=== PATIENT | female | born 1950 | race Caucasian/White ===

== ENCOUNTER 2019-11-12 11:17 | Outpatient (CLI) | payer MEDICARE, SELFPAY ==
--- NOTE | ~2019-11-12 | PE_ITS ---
EXAMINATION: PET skull to mid thigh DATE: 11/12/2019 14:06 INDICATION: Lung nodule. TECHNIQUE: Blood glucose level was 95 mg/dL. 6.209 mCi of 18-fluorodeoxyglucose (18-FDG) was administ ered i.v. Low dose computed tomography (CT) images were acquired from the base of the brain to the pr oximal thighs for attenuation correction and anatomic localization. Automated exposure control was em ployed. Dose-length product (DLP) was 1026 mGy-cm. Positron emission tomography (PET) images were acq uired in the same distribution. COMPARISON: None FINDINGS: Head/neck: There is increased activity in the oral cavity, oropharynx, and nasopharynx, major salivar y glands, and glottis without CT correlate, likely physiologic. There are no pathologically enlarged lymph nodes. Chest: In the right lower lobe, there is a 19 mm nodule without increased activity. No pleural effusi on. The heart size is normal. No pericardial effusion. There are no pathologically enlarged lymph nod es. There is increased activity in some vertebral bodies without CT correlate, likely bone marrow sti mulation. Abdomen/pelvis/proximal thighs: The liver and spleen are normal. There are changes of cholecystectomy . The pancreas, adrenal glands, and kidneys are normal. There are no dilated loops of bowel. There ar e no pathologically enlarged lymph nodes. There is no free intraperitoneal fluid. There is gas in the bladder lumen, likely from recent instrumentation. There is no osseous malignancy. There is increase d activity in some vertebral bodies without CT correlate, likely bone marrow stimulation. IMPRESSION: 1. 19 mm right lower lobe pulmonary nodule without increased activity, most likely benign. Noncontras t chest CT is recommended in 3-6 months to exclude low-grade malignancy. Reviewed, dictated and finalized at location A. IMPRESSION: 1. 19 mm right lower lobe pulmonary nodule without increased activity, most lik rhoda benign. Noncontrast chest CT is recommended in 3-6 months to exclude low-gr ashley malignancy.
[2019-11-12 12:10] LABS: Glucose Point of Care 95 (65-105)
== END 2019-11-12 11:18 | disposition home or self-care (01) ==
PROVIDERS: PCP Family Medicine; Visit Provider Internal Medicine Critical Care Medicine
DX: R91.1 Solitary pulmonary nodule (principal)
CPT/HCPCS: 78815; A9552

== ENCOUNTER 2020-02-24 10:12 | Outpatient (CLI) | payer MEDICARE, SELFPAY ==
--- NOTE | ~2020-02-24 | CT_ITS ---
EXAMINATION:CT chest wo con DATE: 02/24/2020 10:45 INDICATION: Lung nodule. TECHNIQUE: Computed tomography (CT) of the chest was performed without intravenous contrast. Automate d exposure control and iterative reconstruction technique were employed. The dose-length product (DLP ) was 152.94 mGy-cm. COMPARISON: PET CT 11/12/2019 FINDINGS: A calcified 1.9 cm right lower lobe pulmonary nodule and calcified right hilar lymph nodes are consistent with old granulomatous disease. There are numerous scattered pulmonary nodules bilater ally measuring up to 5 mm. No pleural effusion. The heart size is normal. No pericardial effusion. Th ere are changes of cholecystectomy. There is mild thoracic spondylosis. IMPRESSION: 1. Pulmonary nodules, likely benign. Reviewed, dictated and finalized at location A.
== END 2020-02-24 10:13 | disposition home or self-care (01) ==
PROVIDERS: PCP Family Medicine; Visit Provider Internal Medicine Critical Care Medicine
DX: R91.8 Other nonspecific abnormal finding of lung field (principal)
CPT/HCPCS: 71250

== ENCOUNTER 2020-08-15 15:57 | Outpatient (CLI) | payer MEDICARE, SELFPAY | END 2020-08-15 15:58 | disposition home or self-care (01) | LOC: ANHCOVIDVC 15:58 | PROVIDERS: PCP Family Medicine; Visit Provider Family Medicine | DX: Z23 Encounter for immunization (principal) | CPT/HCPCS: 0001A; 91300 ==

== ENCOUNTER 2020-08-31 10:13 | Outpatient (CLI) | payer MEDICARE, SELFPAY ==
--- NOTE | ~2020-08-31 | CT_ITS ---
EXAMINATION: CT diagnostic chest wo con EXAM DATE: 08/31/2020 10:52 INDICATION: Multiple pulmonary nodules. TECHNIQUE: Spiral CT of the chest without contrast. Axial, coronal and sagittal images were reviewe d. Coronal maximum intensity pixel images of chest reviewed. The dose-length product (DLP) for this examination was 114.88 mGy-cm. The exposure was tailored according to patient size (auto mA exposur e control), and iterative reconstruction (ASIR) was used as additional dose reduction technique. Comp arison is made to prior examination from 02/24/2020, PET/CT 11/12/2019. FINDINGS: No change in the lobular right lower lobe pulmonary nodule measuring about 1.8 cm, with so me faint calcifications, either hamartoma or granuloma. This is demonstrated 9 months stability. Britt ral other solid pulmonary nodules 5 mm or less unchanged. Scattered bilateral tree-in-bud distribution groundglass nodules, probably pneumonitis. Differential diagnosis includes hypersensitivity pneumonitis, chronic infectious process such as tuberculosis/MACARENA. This appears not significant changed compared to prior study. There are also several subcarinal lymp h nodes which have faint calcification likely from prior granulomatous process. There are no pleural or pericardial effusions. Tracheobronchial tree is patent. There is no pneum othorax. Heart normal in size. No evidence of coronary arterial calcification. There are cholecy stectomy clips. There is thoracic spondylosis without osteoblastic or osteolytic lesions identified. IMPRESSION: 1. Stable pulmonary nodules; optional one-year follow-up chest CT without contrast. 2. Stable tree-in-bud pattern, nonspecific pneumonitis. Reviewed, dictated and finalized at location A. IMPRESSION: 1. Stable pulmonary nodules; optional one-year follow-up chest CT without cont rast. 2. Stable tree-in-bud pattern, nonspecific pneumonitis.
== END 2020-08-31 10:14 | disposition home or self-care (01) ==
PROVIDERS: PCP Family Medicine; Visit Provider Internal Medicine Critical Care Medicine
DX: R91.8 Other nonspecific abnormal finding of lung field (principal)
CPT/HCPCS: 71250

== ENCOUNTER 2020-09-05 15:57 | Outpatient (CLI) | payer MEDICARE, SELFPAY | END 2020-09-05 15:58 | disposition home or self-care (01) | LOC: ANHCOVIDVC 15:57 | PROVIDERS: PCP Family Medicine; Visit Provider Family Medicine | DX: Z23 Encounter for immunization (principal) | CPT/HCPCS: 0002A; 91300 ==

== ENCOUNTER 2021-02-23 08:49 | Outpatient (CLI) | payer MEDICARE, SELFPAY ==
--- NOTE | ~2021-02-23 | DEXA_ITS ---
Bone Density Report Name: Trinidad Wagner Age: 70 Sex: Female Ethnicity: White Date of : 1950 Indication: postmenopausal; height loss; prior fracture; cancer; hysterectomy; Referring Provider: CHING HERNANDEZ Study: Bone densitometry was performed. Exam Date: February 23, 2021 Accession number: [id number] Bone Density: Region BMD T-score Z-score Classification AP Spine (L1-L4) 0.922 -1.1 0.9 Osteopenia Femoral Neck (Left) 0.611 -2.1 -0.4 Osteopenia Total Hip (Left) 0.774 -1.4 0.1 Osteopenia Total Hip Bilateral Avg 0.760 -1.5 -0.1 Osteopenia Femoral Neck (Right) 0.639 -1.9 -0.2 Osteopenia Total Hip (Right) 0.746 -1.6 -0.2 Osteopenia World Health Organization criteria for BMD impression classify patients as: Normal (T-score at or above -1.0), Osteopenia (T-score between -1.0 and -2.5), or Osteoporosis (T-score at or below -2.5). 10-year Fracture Risk: FRAX not reported because: Treated for osteoporosis Clinical Information Provided by Patient: Has had a low trauma fracture Is being treated for osteoporosis Has used the following medications: Fosamax (i.e. alendronate), Vitamin D, Calcium Has the following medical conditions: Cancer, Hysterectomy Patient maximum height was 68 Menopause Age: 49 Drinks caffeinated beverages Onset of menses at age 15 Number of children 2 Impression: The patient has low bone mass, based on the Left Femoral Neck T-score. The patient has risk factors, including: previous fracture. Discussion: It is important to ask patients whether they are taking their medications and to encourage continued and appropriate compliance with their osteoporosis therapies to reduce fracture risk. It is also important to review their risk factors and encourage appropriate calcium and vitamin D intakes, exercise, fall prevention and other lifestyle measures. Follow-Up: Consider a repeat BMD and Vertebral Fracture Assessment (VFA) exam in 2 years or sooner if medically necessary, to reassess this patient's status. Reported by: KERRY on 02/23/2021 9:09:00 AM. Reviewed, dictated and finalized at location ASherice BARCENAS
== END 2021-02-23 08:50 | disposition home or self-care (01) ==
PROVIDERS: PCP Family Medicine; Visit Provider Obstetrics & Gynecology
DX: Z78.0 Asymptomatic menopausal state (principal); M85.88 Other specified disorders of bone density and structure, other site; M85.852 Other specified disorders of bone density and structure, left thigh; M85.851 Other specified disorders of bone density and structure, right thigh
CPT/HCPCS: 77080

== ENCOUNTER 2021-09-05 08:54 | Outpatient (CLI) | payer MEDICARE, SELFPAY ==
--- NOTE | ~2021-09-05 | CT_ITS ---
EXAMINATION:CT diagnostic chest wo con DATE: 09/05/2021 09:10 INDICATION: Other nonspecific abnormal finding in lung field. Pulmonary nodules. TECHNIQUE: Computed tomography (CT) of the chest was performed without intravenous contrast. Automate d exposure control and iterative reconstruction technique were employed. The dose-length product (DLP ) was 138.46 mGy-cm. COMPARISON: Chest CT 08/31/2020, 02/24/2020 FINDINGS: A calcified right lower lobe nodule and calcified right hilar and mediastinal lymph nodes a re consistent with old granulomatous disease. There are innumerable scattered nodules in the lungs me asuring up to 4 mm. No pleural effusion. The heart size is normal. No pericardial effusion. There are changes of cholecystectomy. There is mild thoracic spondylosis. IMPRESSION: 1. Small pulmonary nodules again seen, likely benign. Reviewed, dictated and finalized at location A.
== END 2021-09-05 08:55 | disposition home or self-care (01) ==
PROVIDERS: PCP Family Medicine; Visit Provider Nurse Practitioner Family
DX: R91.8 Other nonspecific abnormal finding of lung field (principal); M47.814 Spondylosis without myelopathy or radiculopathy, thoracic region
CPT/HCPCS: 71250

== ENCOUNTER 2022-01-19 00:51 | Day surgery (SDC) | payer MEDICARE, SELFPAY ==
[2021-10-26 13:39] VITALS: BMI 29.7
[2022-01-01 14:08] VITALS: BMI 29.7
--- NOTE | 2022-01-18 09:00 | WPDANESEPPF ---
Anes - Initial Pre Proc Eval Procedure: Operation Date: 01/19/22 07:30 Proposed Procedures p Screening Colonoscopy - Jersey Petit MD Date/Time: 01/18/22 09:00 Surgeon: Jersey Petit MD Pre Op Diagnosis: family hx of colon ca Patient Data Age: 71 Gender: F Height: 1.7 m Weight: 86 kg Allergies Allergy/AdvReac Type Severity Reaction Status Date / Time Sulfa (Sulfonamide Allergy Mild Rash Verified 01/19/22 06:14 Antibiotics) Penicillins Allergy Unknown Itching Verified 01/19/22 06:14 Home Medications Medication Instructions Recorded Confirmed Type calcium carbonate 600 mg-vitamin 1 tablet PO BID 10/26/21 01/19/22 History D3 5 mcg (200 unit) tablet (Calcium 600 + D(3)) omega-3 fatty acids-vitamin E 1 cap PO DAILY 10/26/21 01/19/22 History 1,000 mg capsule pravastatin 20 mg tablet 20 mg PO DAILY 10/26/21 01/19/22 History vitamins A,C,C-dkzr-ganlen 14,320 1 cap PO BID 10/26/21 01/19/22 History unit-226 mg-200 unit capsule (PreserVision AREDS) atenolol 25 mg tablet See Rx Instructions .Route 01/12/22 01/19/22 Rx .COMPLEX #90 tabs esomeprazole magnesium 40 mg See Rx Instructions .Route 01/12/22 01/19/22 Rx capsule,delayed release .COMPLEX #90 caps ondansetron 4 mg disintegrating 4 mg translingual Q4H nausea and 01/18/22 01/19/22 Rx tablet vomiting #7 tabs sumatriptan succinate 50 mg tablet See Rx Instructions .Route 01/18/22 01/19/22 Rx .COMPLEX #27 tabs Patient hx anesthesia problems: none Family hx anesthesia problems: none Results Review: All pre-operative results and documents have been reviewed as part of the pre-operative evaluation. [facility] Past Medical History Medical History (Updated 01/18/22 @ 16:50 by Jersey Petit MD) Asthma GERD (gastroesophageal reflux disease) H/O malignant neoplasm of uterine body History of vaginal delivery Hyperlipidemia Hypertension Migraine Surgical History Surgical History H/O colonoscopy with polypectomy 04/24/2017-2 colon polyps-repeat 5 yrs H/O esophagogastroduodenoscopy 04/24/2017 H/O total hysterectomy with bilateral salpingo-oophorectomy (BSO) History of bilateral knee replacement History of section History of cholecystectomy History of sinus surgery Status post appendectomy Family History Family History Grandparent Family history of tuberculosis Carcinoma of colon Family history of malignant neoplasm of breast in first degree relative Family history of malignant neoplasm Family history of malignant neoplasm of breast Mother Diabetes mellitus Hypertension Family history of malignant neoplasm of brain Social History Social History Smoking status: Never smoker Second hand tobacco smoke exposure: No Alcohol intake: current Drinks per week: 2 Alcohol use details: Socially Substance use: never Substance use type: does not use Living arrangements: with family Gender identity (if verbalized by the patient): Female Spiritual care concerns: No Agree to blood products: Yes Anes - Eval Final PreProcedure Day of Procedure 01/18/22 09:00 Patient weight: overweight Heart: regular rate and rhythm Lungs: clear to auscultation Airway: Mallampati scale class II Neurological: alert and oriented Last oral intake: >/= 8 hours ASA classification: II Emergent: no Anesthetic plan: proceed Anesthesia type and monitoring: general GIVS and standard monitoring Results Review: All pre-operative results and documents have been reviewed as part of the pre-operative evaluation. Informed Consent: The patient's anesthetic plan and its attendant risks and benefits were discussed with the patient/family/POA. Questions were solicited and answers provided to the satisfaction of the patient/family/POA.
--- NOTE | 2022-01-18 16:50 | PM.HPGS ---
History of Present Illness History of Present Illness Consent: Risks, benefits, and alternatives have been discussed and questions answered. Patient agrees to proceed with procedure. Chief complaint: family hx of colon ca Narrative: Trinidad Wagner is a 71 year old female Referred for colon cancer screening. She had 2 polyps removed about 5 years ago. Review of Systems Review of Systems: All systems reviewed & are unremarkable except as noted in HPI and below PMFSH Past Medical History Medical History Asthma GERD (gastroesophageal reflux disease) H/O malignant neoplasm of uterine body History of vaginal delivery Hyperlipidemia Hypertension Migraine Surgical History Surgical History H/O colonoscopy with polypectomy 04/24/2017-2 colon polyps-repeat 5 yrs H/O esophagogastroduodenoscopy 04/24/2017 H/O total hysterectomy with bilateral salpingo-oophorectomy (BSO) History of bilateral knee replacement History of section History of cholecystectomy History of sinus surgery Status post appendectomy Family History Family History Grandparent Family history of tuberculosis Carcinoma of colon Family history of malignant neoplasm of breast in first degree relative Family history of malignant neoplasm Family history of malignant neoplasm of breast Mother Diabetes mellitus Hypertension Family history of malignant neoplasm of brain Social History Social History Smoking status: Never smoker Second hand tobacco smoke exposure: No Alcohol intake: current Drinks per week: 2 Alcohol use details: Socially Substance use: never Substance use type: does not use Living arrangements: with family Gender identity (if verbalized by the patient): Female Spiritual care concerns: No Agree to blood products: Yes Meds Home Medications and Allergies Home Medications Medication Instructions Recorded Confirmed Type calcium carbonate 600 mg-vitamin 1 tablet PO BID 10/26/21 01/19/22 History D3 5 mcg (200 unit) tablet (Calcium 600 + D(3)) omega-3 fatty acids-vitamin E 1 cap PO DAILY 10/26/21 01/19/22 History 1,000 mg capsule pravastatin 20 mg tablet 20 mg PO DAILY 10/26/21 01/19/22 History vitamins A,C,S-qgcv-zyhhhd 14,320 1 cap PO BID 10/26/21 01/19/22 History unit-226 mg-200 unit capsule (PreserVision AREDS) atenolol 25 mg tablet See Rx Instructions .Route 01/12/22 01/19/22 Rx .COMPLEX #90 tabs esomeprazole magnesium 40 mg See Rx Instructions .Route 01/12/22 01/19/22 Rx capsule,delayed release .COMPLEX #90 caps ondansetron 4 mg disintegrating 4 mg translingual Q4H nausea and 01/18/22 01/19/22 Rx tablet vomiting #7 tabs sumatriptan succinate 50 mg tablet See Rx Instructions .Route 01/18/22 01/19/22 Rx .COMPLEX #27 tabs Allergies Allergy/AdvReac Type Severity Reaction Status Date / Time Sulfa (Sulfonamide Allergy Mild Rash Verified 01/19/22 06:14 Antibiotics) Penicillins Allergy Unknown Itching Verified 01/19/22 06:14 Exam Resp: Auscultation: clear to auscultation bilaterally Cardio: Rate: regular rate Rhythm: regular rhythm GI: GI Palp: Yes Soft to palpation and No Tenderness to palpation present (GI) Assessment and Plan Assessment and plan (1) Colon cancer screening: Code(s): Z12.11 - Encounter for screening for malignant neoplasm of colon Status: Acute Assessment and Plan: Colonoscopy with possible biopsy or polypectomy or cautery or injection of substances.
[2022-01-19 06:16] VITALS: BP 127/64; PULSE 65; RESP 20; TEMP 36; O2SAT 98; BMI 29.5
[2022-01-19] MEDS: LACTATED RINGERS 1,000 ML 150 ML IV CONT (06:19)
[2022-01-19 07:50] VITALS: BP 103/60; PULSE 69; RESP 20; O2SAT 93
[2022-01-19 08:00] VITALS: BP 121/56; PULSE 68; RESP 16; O2SAT 98
[2022-01-19 08:10] VITALS: BP 136/87; PULSE 62; RESP 20; O2SAT 98
== END 2022-01-19 08:26 | disposition home or self-care (01) ==
PROVIDERS: PCP Family Medicine; Visit Provider Internal Medicine Gastroenterology
PROC: 0DJD8ZZ Inspection of Lower Intestinal Tract, Via Natural or Artificial Opening Endoscopic (ICD-10-PCS; CPT 45378; principal; 2022-01-19 08:00)
DX: Z12.11 Encounter for screening for malignant neoplasm of colon (principal); D12.2 Benign neoplasm of ascending colon; Z80.0 Family history of malignant neoplasm of digestive organs; K21.9 Gastro-esophageal reflux disease without esophagitis; I10 Essential (primary) hypertension; J45.909 Unspecified asthma, uncomplicated; E78.5 Hyperlipidemia, unspecified
CPT/HCPCS: 45385; 88305; J2370; J2704; J7120

== ENCOUNTER 2022-05-09 11:15 | Emergency (ER) | payer MEDICARE, SELFPAY ==
--- NOTE | 2022-05-09 12:00 | ED.URI ---
HPI - URI/Sore Throat General Chief Complaint: Upper Respiratory Infection Stated Complaint: bilateral ear pain,congestion Time Seen by Provider: 05/09/22 11:20 Source: patient Mode of arrival: ambulatory Limitations: no limitations History of Present Illness HPI Narrative: Trinidad is a 72-year-old female patient presenting to the clinic today with complaints of bilateral ear pain, cough, congestion, fatigue, and decreased appetite since Saturday. She reports she has been exposed to someone with COVID and flu. MD elicited complaint: sore throat and nasal congestion Related Data Allergies Allergy/AdvReac Type Severity Reaction Status Date / Time Sulfa (Sulfonamide Allergy Mild Rash Verified 05/09/22 11:53 Antibiotics) Penicillins Allergy Unknown Itching Verified 05/09/22 11:53 Review of Systems Review of Systems: Pertinent positives per HPI. Patient denies any fever, chills, rash, headache, visual changes, dizziness, shortness of breath, chest pain, palpitations, nausea, vomiting, diarrhea, constipation, abdominal pain, or any urinary issues. [facility] Past Medical History Medical History Asthma Diabetes GERD (gastroesophageal reflux disease) H/O malignant neoplasm of uterine body History of vaginal delivery Hyperlipidemia Hypertension Migraine Surgical History Surgical History H/O colonoscopy with polypectomy 04/24/2017-2 colon polyps-repeat 5 yrs 01/19/2022 2 colon polyp - rpt 5 yrs H/O esophagogastroduodenoscopy 04/24/2017 H/O total hysterectomy with bilateral salpingo-oophorectomy (BSO) History of bilateral knee replacement History of section History of cholecystectomy History of sinus surgery Status post appendectomy Family History Family History Grandparent Family history of tuberculosis Carcinoma of colon Family history of malignant neoplasm of breast in first degree relative Family history of malignant neoplasm Family history of malignant neoplasm of breast Mother Diabetes mellitus Hypertension Family history of malignant neoplasm of brain Social History Social History Smoking status: Never smoker Second hand tobacco smoke exposure: No Alcohol intake: current Drinks per week: 2 Alcohol use details: Socially Substance use: never Substance use type: does not use Gender identity (if verbalized by the patient): Female Spiritual care concerns: No Agree to blood products: Yes Comments At the time of my signature, I reviewed and agree with the nursing past medical, surgical, social, and family history. There is no relevant family history pertinent to the patient complaint. Exam Narrative: General: Well-developed, well nourished, in no apparent distress Head: Normocephalic, atraumatic Eyes: Pupils equally round and reactive to light bilaterally, EOM intact, sclera and conjunctive clear, no discharge, lids normal Ears: TMs intact dull and bulging, ear canals clear, no drainage, grossly hearing normal. Nose: Nares patent, clear nasal discharge, no inflammation, no sinus tenderness. Mouth: Oral pharynx without lesions or masses, good dentition, MMM. postnasal drip Neck: Supple, trachea midline, no enlargement of anterior or posterior cervical nodes, no thyroid masses or goiter palpable. Cardio: Regular rate and rhythm, s1 and s2 normal, no murmur appreciated. Resp: Clear to auscultation bilaterally, no rhonchi, rales, wheezing or rubs Course Course Emergency Course: Portions of this record may have been created with voice recognition software. Level of Care: Express Care Visit Vital Signs Vital signs: Vital signs reviewed MDM - URI/Sore Throat MDM Narrative Medical decision making narrative: at the time of visi
== END 2022-05-09 12:06 | disposition home or self-care (01) ==
PROVIDERS: Emergency Provider Nurse Practitioner Family; PCP Family Medicine
DX: J10.1 Influenza due to other identified influenza virus with other respiratory manifestations (principal); J45.909 Unspecified asthma, uncomplicated; E11.9 Type 2 diabetes mellitus without complications; K21.9 Gastro-esophageal reflux disease without esophagitis; E78.5 Hyperlipidemia, unspecified; I10 Essential (primary) hypertension; Z96.653 Presence of artificial knee joint, bilateral
CPT/HCPCS: 87804; 99213; G0463

== ENCOUNTER 2022-10-29 10:15 | Outpatient (RCR) | payer MEDICARE, SELFPAY ==
--- NOTE | 2022-08-28 09:50 | PTOPEVAL1 ---
Assessment and note entered by Aniya Sapmson, PT Evaluation Information Assessment Status Evaluation Diagnosis right shoulder and right hip pain Subjective Information Reports does Silver Sneakers and has a twinge in front of right shoulder. 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 Notes cannot do true overhand throwing. Right hip since last summer has an ache in te right hip. Notes with the lateral movements notes this is what causes pain. Reported Pain Level Pain Score 0,0: Self Report Assessment PT Clinical Summary Pt presents with c/o right shoulder and right hip pain. Right shoulder demo's decreased active and passive ROM with capsular end-feels and rounded shoulder postures. Evaluation of right hip shows decreased active ROM when compared to passive as well as strength deficits. Pt will benefit from physical therapy to address deficits and reduce pain to allow improved pain-free functional activities. Plan of Care Interventions Electrical Stimulation,Hot Pack/Cold Pack,Manual Therapy,Neuro Re-education,Therapeutic Activities, Therapeutic Exercise,Ultrasound PT Services Indicated Yes Treatment Frequency and 2x weekly x 8 weeks Duration These treatments will address the objective and functional deficits as defined above. The patient will be advanced safely and appropriately in order for the patient to progress towards his/her prior level of function. Additional exercises will be introduced and as well as a comprehensive home exercise program upon discharge, if needed, ?to ensure carryover of functional gains achieved in the clinic. This treatment plan has been reviewed and agreement upon by the patient.
--- NOTE | 2022-09-28 15:42 | PTOPPROG ---
Assessment and note entered by Aniya Sampson, PT Assessment Status Progress Report Diagnosis right shoulder and right hip pain Subjective Information Reports shoulder feels at least 50% improved. Still gets an intense zing in shoulder but is less frequent than previously Reports right hip in the upper quad more than hip joint hip kickers bother right leg. Lateral movements in the hip is still bothersome also somewhat. Feels 40% improved on the right hip. Assessment PT Clinical Summary Pt demo's improved active and passive ROM of right shoulder and hip, and improved right hip strength . Cont to demo capsular pattern and end-feels with right shoulder ROM, decreased strength right hip, and continued discomfort overall. Pt is progressing and is partway through her plan of care. Thus will continue therapy to continue progressing deficits and reduce discomfort. Plan of Care Interventions Electrical Stimulation,Hot Pack/Cold Pack,Manual Therapy,Neuro Re-education,Therapeutic Activities, Therapeutic Exercise,Ultrasound PT Services Indicated Yes Treatment Frequency and 2x weekly x 4 weeks Duration These treatments will address the objective and functional deficits as defined above. The patient will be advanced safely and appropriately in order for the patient to progress towards his/her prior level of function. Additional exercises will be introduced and as well as a comprehensive home exercise program upon discharge, if needed, ?to ensure carryover of functional gains achieved in the clinic. This treatment plan has been reviewed and agreement upon by the patient.
--- NOTE | 2022-10-29 11:11 | PTOPDC ---
Assessment and note entered by Aniya Sampson, PT Assessment Status Discharge Diagnosis right shoulder and right hip pain Subjective Information Reports shoulder feeling much better. Much less instances of shooting pain Reports 80% improved overall Right hip feels 80% improved overall. Has more trouble with quads than hip at the moment Reported Pain Level Pain Score 0,0: Self Report Assessment PT Clinical Summary [facility] right hip [facility]. She has demonstrated a highly motivated attitude and consistently reports how she applies therapy obtained knowledge to her activities like Silver Sneakers. She reports feeling 80% improved overall and that she understands her home program to continue improvement. While she has not met 100% of her objective therapy goals, she has significantly less discomfort and is happy with her progress. She is also safe and functional thus she is being discharged from therapy at this time for completing her program.
== END 2022-10-29 11:40 | disposition home or self-care (01) ==
LOC: ANHPT 10:15
PROVIDERS: PCP Family Medicine; Visit Provider Family Medicine
DX: M25.511 Pain in right shoulder (principal); M25.551 Pain in right hip
CPT/HCPCS: 97110; 97112; 97140; 97162

== ENCOUNTER 2023-11-15 10:00 | Outpatient (RCR) | payer MEDICARE, SELFPAY ==
--- NOTE | 2023-10-07 13:38 | PTOPEVAL1 ---
Assessment and note entered by Aniya Sampson, PT Evaluation Information Assessment Status Evaluation Diagnosis BPPV unspec Therapy condition BPPV Left ear, other abnormalities of gait and mobility Onset ~ 3 weeks Subjective Information Pt reports had a fall right before , did fine until a couple days later. When was getting out of bed noted felt like the mattress was throwing her forward. Sat while holding to mattress. Gets out of bed to her right Reported Pain Level Pain Score 0: Self Report Assessment PT Clinical Summary Pt presents with vertigo symptoms after fall. Only mild right torsional nystagmus noted for a short time with [place]-Hallpike (R) and symptoms without nystagmus with sitting after supine with right rotation. Standing balance testing pt lost balance to L>R however as most symptoms reported with R side testing, R BPPV appears more likely than L. Patient demo's significant balance deficits effecting her mobility and functional activities. Thus patient will benefit from physical therapy to address BPPV through [employer] procedures, improve balance, and return pt to [facility]. Plan of Care Interventions Gait Training,Hot Pack/Cold Pack,Neuro Re- education,Therapeutic Activities,Self-Care/Home Management PT Services Indicated Yes Treatment Frequency and 1-3x weekly x 16 visits Duration These treatments will address the objective and functional deficits as defined above. The patient will be advanced safely and appropriately in order for the patient to progress towards his/her prior level of function. Additional exercises will be introduced and as well as a comprehensive home exercise program upon discharge, if needed, ?to ensure carryover of functional gains achieved in the clinic. This treatment plan has been reviewed and agreement upon by the patient.
--- NOTE | 2023-10-07 13:39 | OPREHPOC ---
Outpatient Therapy Plan of Care This is a Multidisciplinary Plan of Care that may contain components documented by all disciplines (PT, OT, and ST.) PT Problem 1 PT Problem #1 Knowledge Deficit PT Goal 1 Goal Pt will be independent in HEP Pt will verbalize understanding of diagnosis and prognosis Target Visit 6 PT Problem 2 PT Problem #2 Impaired Balance PT Goal 1 Goal Pt will demo tandem stance firm surface eyes open with R/L forward each x 20 seconds Target Visit 8 PT Goal 2 Goal Pt will demo tandem stance on firm surface R/L forward each with eyes closed x 5 seconds Target Visit 16 PT Problem 3 PT Problem #3 Impaired Sensation PT Goal 1 Goal Pt will demo ability to tolerate Tray maneuver without symptoms Target Visit 16
--- NOTE | 2023-11-15 15:55 | PTOPDC ---
Assessment and note entered by Aniya Sampson, PT Assessment Status Discharge Diagnosis BPPV unspec Onset ~ 3 weeks Subjective Information Self-perceived improvement: 100% only bothered at [employer] with new activity of bending over then raising to one side, bending over, raising up to other side. Reported Pain Level Pain Score 0: Self Report Assessment PT Clinical Summary Pt has attended therapy consistently for vertigo and balance deficits. She reports feeling 100% back to her normal. Though she does show an upward torsional left nystagmus with left [place]- Hallpike testing, she has no dizziness or vertigo symptoms. Pt cont to demo poor eyes closed balance , however has history of mitchel knee replacements effecting proprioception and has demo'd in sessions less reliance on UEs with varying base of support eyes closed activities. She was provided an updated HEP to continue improving her inner ear abilities and balance. Pt has been educated on when to return to therapy if necessary in the future. Thus is being discharged for completion of therapy plan of care Plan of Care PT Services Indicated No
== END 2023-11-27 08:24 | disposition home or self-care (01) ==
LOC: ANHHIPT 10:00
PROVIDERS: PCP Family Medicine; Visit Provider Family Medicine
DX: H81.12 Benign paroxysmal vertigo, left ear (principal)
CPT/HCPCS: 95992; 97014; 97110; 97112; 97162; G0283